=== PATIENT | female | born 1980 | race Caucasian/White ===

== ENCOUNTER 2021-09-24 18:27 | Emergency (ER) | payer OTHER, SELFPAY ==
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
[2021-09-24 18:38] VITALS: BP 111/71; PULSE 90; RESP 18; TEMP 37.1; O2SAT 97; BMI 26.5
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
[2021-09-24 22:11] LABS: UPreg QC Valid YES; Urine Pregnancy NEGATIVE (NEGATIVE)
[2021-09-24] MEDS: Lidocaine 4 % Patch ADH..PATCH 1 PATCH TRANSDERMA (23:44)
== END 2021-09-24 23:40 | disposition home or self-care (01) ==
PROVIDERS: Physician Assistant; Emergency Provider Internal Medicine; PCP Internal Medicine
DX: S13.4XXA Sprain of ligaments of cervical spine, initial encounter (principal); G44.309 Post-traumatic headache, unspecified, not intractable; V43.52XA Car driver injured in collision with other type car in traffic accident, initial encounter; Y93.9 Activity, unspecified; Y92.410 Unspecified street and highway as the place of occurrence of the external cause; Y99.9 Unspecified external cause status; Z79.899 Other long term (current) drug therapy
CPT/HCPCS: 70450; 71250; 72125; 73522; 74176; 81025; 99284

== ENCOUNTER 2023-02-12 17:40 | Emergency (ER) | payer OTHER, SELFPAY ==
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
[2023-02-12 17:44] VITALS: BP 110/89; PULSE 90; RESP 20; TEMP 36.7; O2SAT 99; BMI 29.2
--- OUTSIDE RECORDS SUMMARY | 2023-02-12 18:45 | XMS_ITS | Continuity of Care Document ---
Author Name Unknown Organization [facility] ter Address [address] [place] [id number]- Care Team Providers Care Production Superintendent Name Role Phone Deidra Bay MD Primary Care Physician Encounter [facility] [place] Date(s): 09/27/20 - 09/27/[address] [address]- Encounter Diagnosis Traumatic hematoma of abdominal wall(Final) - 09/27/20 Discharge Disposition: A-D/C Home Attending Physician: Brittney Grace MD Admitting Physician: Brittney Grace MD Referring Physician: Not on Staff, Referring MD Allergies, Adverse Reactions, Alerts Substance Reaction Severity Status NKA Active Medications sertraline 50 mg oral tablet 1 tablet, By Mouth, Daily, # 30 tablet, 0 Refills, Maintenance, 11/18/19 14:07:00 EDT, [id number], 159, cm, 09/27/19 10:47:00 EST, Height, 59, kg, 09/09/19 16:07:00 EST, Dry Weight Start Date: 11/18/19 Status: Ordered traZODone 50 mg oral tablet See Instructions, TAKE 1 TABLET BY MOUTH EVERYDAY AT BEDTIME, # 30 tablet, Refills 0, Maintenance, Instructions Replace Required Details, Route to Pharmacy Electronically, [id number], 159, cm, 09/27/19 10:47:00 EST, Height, 59, kg, 09/09/19 16:07... Start Date: 11/18/19 Status: Ordered Tylenol 325 mg oral capsule 1 capsule = 325 mg, By Mouth, 3 times a day, 0 Refills, Maintenance, 09/27/20 12:21:00 EST, Partialfill upon patient request if the prescription is for a schedule II opioid drug. Start Date: 09/27/20 Status: Ordered Problem List Condition Effective Dates Status Health Status Inform ant Anxiety(Confirmed) Active Bipolar 2 disorder(Confirmed) Active Lyme disease(Confirmed) 2017 Active Mass in breast(Confirmed) Active Post traumatic stress disorder(Confirmed) Active Vital Signs Most recent to oldest [Reference Range]: 1 2 3 Oxygen Saturation [94-100 %] 100 % (09/27/20 6:37 PM) 100 % (09/27/20 12:27 PM) 100 % (09/27/20 11:52 AM) Pulse Rate [55-90 bpm] 62 bpm (09/27/20 6:37 PM) 80 bpm (09/27/20 12:27 PM) 87 bpm (09/27/20 11:52 AM) Blood Pressure [90-138/55-84 mm Hg] 110/72mm Hg (09/27/20 6:37 PM) 107/61mm Hg (09/27/20 12:27 PM) Respiratory Rate [16-30 br/min] 18 br/min (09/27/20 6:37 PM) 16 br/min (09/27/20 12:27 PM) Temperature [96.8-100.4 DegF] 98.6 DegF (09/27/20 6:37 PM) 98.7 DegF (09/27/20 12:27 PM) Mode of Delivery (Oxygen) Room air (09/27/20 6:37 PM) Room air (09/27/20 12:27 PM) Room air (09/27/20 11:52 AM) Blood pressure sites Arm, right (09/27/20 12:27 PM) Temperature Route Oral (09/27/20 12:27 PM) Social History Social History Type Response Tobacco Use: 4 or less cigar ettes(less than 1/4 pack)/day in last 30 days. Sex Female
--- OUTSIDE RECORDS SUMMARY | 2023-02-12 18:45 | XMS_ITS | Continuity of Care Document ---
Author Name Unknown Organization [facility] Address [address] [place] [address] [address] [place] [address]- Care Team Providers Care Rubber Off Name Role Phone Phu LOUISE, Deidra Hobbs Primary Care Physician Encounter [facility] [place] Date(s): 10/01/20 - 11/02/[address] [place] [address]- Attending Physician: Brian Worthy MD Allergies, Adverse Reactions, Alerts Substance Reaction Severity Status NKA Active Medications LORazepam 0.5 mg oral tablet 1 tablet = 0.5 mg, By Mouth, 3 times a day, 0 Refills, Maintenance, 10/10/20 11:14:00 EST, Partial fill upon patient request if the prescription is for a schedule II opioid drug. Start Date: 10/10/20 Status: Ordered sertraline 50 mg oral tablet 1 tablet, By Mouth, Daily, # 30 tablet, 0 Refills, Maintenance, 11/18/19 14:07:00 EDT, [id number], 159, cm, 09/27/19 10:47:00 EST, Height, 59, kg, 09/09/19 16:07:00 EST, Dry Weight Start Date: 11/18/19 Status: Ordered Tylenol 325 [...] breast(Confirmed) Active Post traumatic stress disorder(Confirmed) Active Social History Social History Type Response Tobacco Use: 4 or less cigar ettes(less than 1/4 pack)/day in last 30 days. Sex Female
--- OUTSIDE RECORDS SUMMARY | 2023-02-12 18:45 | XMS_ITS | Continuity of Care Document ---
Author Name Unknown Organization [facility] Address [address] [place] [address] [address] [place] [address]- Care Team Providers Care Qa Tester Name Role Phone Phu LOUISE, Deidra Hobbs Primary Care Physician Encounter [facility] [place] Date(s): 12/05/20 - 12/12/[address] [place] [address]- Attending Physician: Trista Goode MD Referring Physician: Not on Staff, Referring [...] tablet, 0 Refills, Maintenance, 11/18/19 14:07:00 EDT, [id number], 159, cm, 09/27/19 10:47:00 EST, Height, 59, [...] Most recent to oldest [Reference Range]: 1 Height 159 cm (12/05/20 10:55 AM) Weight 63.4 kg (12/05/20 10:55 AM) Pulse Rate [55-90 bpm] 68 bpm (12/05/20 10:55 AM) Body Mass Index [18.5-24.99] 25.08 *H* (12/05/20 10:55 AM) Blood Pressure [90-138/55-84 mm Hg] 128/ 73mm Hg (12/05/20 10:55 AM) Temperature [96.8-100.4 DegF] 97.2 DegF (12/05/20 10:55 AM) Blood pressure sites Arm, right (12/05/20 10:55 AM) Temperature Route Temporal (12/05/20 10:55 AM) Weight Obtained Via Standing scale (12/05/20 10:55 AM) Social History Social History Type Response Tobacco Use: 4 or less cigar ettes(less than 1/4 pack)/day in last 30 days. Sex Female
--- OUTSIDE RECORDS SUMMARY | 2023-02-12 18:46 | XMS_ITS | Continuity of Care Document ---
Author Name Unknown Organization [facility] Address [address] [place] [address] [address] [place] [address]- Care Team Providers Care Airport Operations Coordinator Name Role Phone Phu LOUISE, Deidra Hobbs Primary Care Physician Encounter [facility] [place] Date(s): 10/10/20 - 11/09/[address] [place] [address]- Attending Physician: Ava Barlow Admitting Physician: Ava Barlow Referring Physician: AdmtrAva Allergies, Adverse Reactions, Alerts Substance Reaction Severity [...] tablet, 0 Refills, Maintenance, 11/18/19 14:07:00 EDT, [id number], 159, cm, 09/27/19 10:47:00 EST, Height, 59, [...]
--- OUTSIDE RECORDS SUMMARY | 2023-02-12 18:46 | XMS_ITS | Continuity of Care Document ---
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 in the abdomen, weakness, fainting, and shortness of breath. ??? A collection of blood in the head (intracranial hematoma). This may cause a headache or symptoms such as weakness, trouble speaking or understanding, or a change in consciousness.?? How is this diagnosed? This condition is diagnosed based on: ??? Your medical history. ??? A physical exam. ??? Imaging tests, such as an ultrasound or CT scan. These may be needed if your health care provider suspects a hematoma in deeper tissues or body spaces. ??? Blood tests. These may be needed if your health care provider believes that the hematoma is caused by a medical condition. How is this treated? Treatment for this condition depends on the cause, size, and location of the hematoma. Treatment may include: ??? Doing nothing. The majority of hematomas do not need treatment as many of them go away on theirown over time. ??? Surgery or close monitoring. This may be needed for large hematomas or hematomas that affect vital organs. ??? Medicines. Medicines may be given if there is an underlying medical cause for the hematoma. Follow these instructions at home: Managing pain, stiffness, and swelling ??? If directed, put ice on the affected area. ??? Put ice in a plastic bag. ??? Place a towel between your skin and the bag. ??? Leave the ice on for 20 minutes, 2???3 times a day for the first couple of days. ??? If directed, apply heat to the affected area after applying ice for a couple of days. Use the heat source that your health care provider recommends, such as a moist heat pack or a heating pad. ??? Place a towel between your skin and the heat source. ??? Leave the heat on for 20???30 minutes. ??? Remove the heat if your skin turns bright red. This is especially important if you are unable to feel pain, heat, or cold. You may have a greater risk of getting burned. ??? Raise (elevate) the affected area above the level of your heart while you are sitting or lying down. ??? If told, wrap the affected area with an elastic bandage. The bandage applies pressure (compression) to the area, which may help to reduce swelling and promote healing. Do not wrap the bandage tootightly around the affected area. ??? If your hematoma is on a leg or foot (lower extremity) and is painful, your health care provider may recommend crutches. Use them as told by your health care provider. General instructions ??? Take slqt-eyw-nrygwav and prescription medicines only as told by your health care provider. ??? Keep all follow-up visits as told by your health care provider. This is important. Contact a health care provider if: ??? You have a fever. ??? The swelling or discoloration gets worse. ??? You develop more hematomas. Get help right away if: ??? Your pain is worse or your pain is not controlled with medicine. ??? Your skin over the hematoma breaks or starts bleeding. ??? Your hematoma is in your chest or abdomen and you have weakness, shortness of breath, or a change in consciousness. ??? You have a hematoma on your scalp that is caused by a fall or injury, and you also have: ??? A headache that gets worse. ??? Trouble speaking or understanding speech. ??? Weakness. ??? Change in alertness or consciousness. Summary ??? A hematoma is a collection of blood under the skin, in an organ, in a body space, in a joint space, or in other tissue. ??? This condition usually does not need treatment because many hematomas go away on their own overtime. ??? Large hematomas, or those that may affect vital organs, may need surgical drainage or monitoring. If the hematoma is caused by a medical condition, medicines may be prescribed. ??? Get help right away if your hematoma breaks or starts to bleed, you have shortness of breath, or you have a headache or trouble speaking after a fall. This information is not intended to replace advice given to you by your health care provider. Make sure you discuss any questions you have with your health care provider. Document Released: 03/31/2005 Document Revised: 01/20/2019 Document Reviewed: 01/20/2019 [employer] Patient Education ?? 2020 [employer]
--- OUTSIDE RECORDS SUMMARY | 2023-02-12 18:46 | XMS_ITS | Continuity of Care Document ---
Author Name Unknown Organization [facility] Address [address] [place] [address] [address] [place] [address]- Care Team Providers Care Pattern Mechanic Name Role Phone Deidra Bay MD Primary Care Physician Encounter [facility] [place] Date(s): 12/12/20 - 01/11/[address] [place] [address]- Allergies, Adverse Reactions, Alerts Substance Reaction Severity [...] tablet, 0 Refills, Maintenance, 11/18/19 14:07:00 EDT, [id number], 159, cm, 09/27/19 10:47:00 EST, Height, 59, [...]
--- OUTSIDE RECORDS SUMMARY | 2023-02-12 18:46 | XMS_ITS | Continuity of Care Document ---
Author Name Unknown Organization [facility] Address [address] [place] [address] [address] [place] [address]- Care Team Providers Care Visual Manager Name Role Phone Phu LOUISE, Deidra Hobbs Primary Care Physician Encounter [facility] [place] Date(s): 10/10/20 - 10/17/20 [facility] [address] [place] [address]- Attending Physician: Trista Goode MD Allergies, Adverse Reactions, Alerts Substance Reaction [...] tablet, 0 Refills, Maintenance, 11/18/19 14:07:00 EDT, [id number], 159, cm, 09/27/19 10:47:00 EST, Height, 59, [...] oldest [Reference Range]: 1 Height 159 cm (10/10/20 11:07 AM) Pulse Rate [55-90 bpm] 75 bpm (10/10/20 11:07 AM) Blood Pressure [90-138/55-84 mm Hg] 109/ 72mm Hg (10/10/20 11:07 AM) Temperature [96.8-100.4 DegF] 97.6 DegF (10/10/20 11:07 AM) Blood pressure sites Arm, left (10/10/20 11:07 AM) Temperature Route Temporal (10/10/20 11:07 AM) Social History Social History Type Response Tobacco Use: 4 or less cigar ettes(less than 1/4 pack)/day in last 30 days. Sex Female
--- OUTSIDE RECORDS SUMMARY | 2023-02-12 18:46 | XMS_ITS | Continuity of Care Document ---
Author Name Unknown Organization [facility] Address [address] [place] [address] [address] [place] [address]- Care Team Providers Care Endband Cutter Hand Name Role Phone Phu LOUISE, Deidra Hobbs Primary Care Physician [place] [facility] [place] Date(s): 12/05/20 - 01/04/[address] [place] [address]- Attending Physician: Ava Barlow Admitting Physician: Ava [...] tablet, 0 Refills, Maintenance, 11/18/19 14:07:00 EDT, [id number], 159, cm, 09/27/19 10:47:00 EST, Height, 59, [...]
[2023-02-12] MEDS: Tetracaine HCl/PF 0.5% Oph Sol 4 ML DROPS 1 DROP EYE-BOTH (21:23)
== END 2023-02-12 22:17 | disposition home or self-care (01) ==
PROVIDERS: Emergency Provider Emergency Medicine Emergency Medical Services
DX: F07.81 Postconcussional syndrome (principal); R51.9 Headache, unspecified
CPT/HCPCS: 70450; 99283; 99284